=== PATIENT | female | born 1965 | race Caucasian/White ===

== ENCOUNTER 2018-07-09 13:04 | Day surgery (SDC) | payer OTHER ==
[~2018-07-09] VITALS: Ht 157.5 cm; Wt 56.8 kg
[2018-07-09 13:47] VITALS: Ht 157.5 cm; Wt 56.8 kg
[2018-07-09] MEDS ORDERED: MELOXICAM (13:55)
[2018-07-09] MEDS ORDERED: GABA-526 PO (13:55)
[2018-07-09 14:18] VITALS: BP 114/56; PULSE 51; RESP 19
--- NOTE | 2018-07-09 14:55 | PREAC ---
Date/Time of Note Date/Time of Note DATE: 07/09/18 TIME: 14:54 Anesthesia Eval and Record Evaluation Time Pre-Procedure Interview DATE: 07/09/18 TIME: 14:54 Age 52 Sex female NPO: 8 hrs Preoperative diagnosis dyspepsia, screening Planned procedure EGD, colonoscopy Past Medical History Past Medical History: Includes (fibromyalgia) Surgery & Anesthesia Issues No known issue Meds Anticoagulation: No Beta Steven within 24 hr: No Reason Beta Steven not given: Pt. not on B-Steven Reported Medications Gabapentin* (Gabapentin*) 600 Mg Tablet, 600 MG PO BID, #60 TAB 07/09/18 [Meloxicam] No Conflict Check 07/09/18 Meds reviewed: Yes Allergies Coded Allergies: No Known Allergy (Unverified , 10/25/13) Allergies Reviewed: Yes Labs/Studies Labs Reviewed: Reviewed by anesthesiologist test: N/A Pre-procedure Exam Last vitals Vital Signs Date Temp Pulse Resp B/P (MAP) Pulse Ox O2 O2 Flow FiO2 Time Delivery Rate 07/09/18 97.9 51 19 114/56 100 Room Air 14:18 (75) Airway: Adequate mouth opening, Adequate thyromental dist Mallampati: Mallampati II Teeth: Normal Lung: Normal Heart: Normal ASA Physical Status ASA physical status: 2 Emergency: None Planned Anesthetic General/MAC: Mask Planned Pain Management Parenteral pain med Pre-operative Attestations Prior to commencing anesthesia and surgery, the patient was re-evaluated, there was verification of: *The patient's identity *The results of appropriate recent lab work and preoperative vital signs *The above evaluation not changing prior to induction *Anesthetic plan, risk benefits, alternative and complications discussed with patient/family; questions answered; patient/family understands, accepts and wishes to proceed. VIOLETA FLOWERS MD July 09, 2018 14:55
[2018-07-09] MEDS ORDERED: ONDANSETRON 4 MG INJ IV PRN (15:00)
[2018-07-09] MEDS ORDERED: PROPOFOL 20 ML ONE ×2 (15:46)
[2018-07-09] MEDS ORDERED: LIDOCAINE 2% (SDV) 5 ML INJ ONE (15:46)
[2018-07-09] MEDS ORDERED: EPHEDrine 25 MG/5 ML SYG ONE (16:21)
--- NOTE | 2018-07-09 16:23 | PAC ---
Date/Time of Note Date/Time of Note DATE: 07/09/18 TIME: 16:23 Post-Anesthesia Notes Post-Anesthesia Note Last documented vital signs Vital Signs Date Temp Pulse Resp B/P (MAP) Pulse Ox O2 O2 Flow FiO2 Time Delivery Rate 07/09/18 97.9 51 19 114/56 100 Room Air 14:18 (75) Activity: WNL Respiratory function: WNL Cardiovascular function: WNL Mental status: Baseline Pain reasonably controlled: Yes Hydration appropriate: Yes Nausea/Vomiting absent: Yes Comments BP: 92/56 HR: 82 RR: 15 T: 98 SaO2: 99% VIOLETA FLOWERS MD July 09, 2018 16:23
[2018-07-09 16:41] VITALS: BP 103/46; PULSE 83; RESP 16
== END 2018-07-09 18:47 | disposition home or self-care (01) ==
LOC: GIL 13:04
PROVIDERS: ATTEND Internal Medicine Gastroenterology
DX: Z12.11 Encounter for screening for malignant neoplasm of colon (principal); K29.50 Unspecified chronic gastritis without bleeding; K64.8 Other hemorrhoids
CPT/HCPCS: 43239; 45378; 88305; 88312; Z7610